=== PATIENT | female | born 1965 | race Caucasian/White ===

== ENCOUNTER 2020-09-18 15:20 | Emergency (ER) | payer MEDICARE, MEDICAID, SELFPAY ==
[2020-09-18 15:49] VITALS: BP 132/72; PULSE 99; RESP 18; TEMP 36.7; O2SAT 98; BMI 33.9
[2020-09-18 16:00] VITALS: RESP 16
--- NOTE | 2020-09-18 16:04 | XR_ITS ---
EXAMINATION: XR FOOT, LEFT CLINICAL INFORMATION: Laceration. Evaluate foreign body. COMPARISON: None. TECHNIQUE: AP, lateral, and oblique views of the left foot. FINDINGS: There is diffuse osteopenia. There is a nondisplaced fracture proximal end proximal phalanx third digit. The soft tissues are normal. There is mild hallux valgus deformity first MTP joint. The ankle mortise and subtalar joints are normal. A small calcaneal spur with mild dorsal foot soft tissue swelling seen. There is an old healed distal tibial fracture. XR/XR foot LT min 3V IMPRESSION: Nondisplaced fracture proximal phalanx proximal and third digit. Diffuse osteopenia. Mild dorsal foot soft tissue swelling.
--- NOTE | 2020-09-18 16:05 | ED.LOWEXIN ---
HPI - Extremity Injury (Lower) General Chief Complaint: Extremity Injury, Lower Stated Complaint: toe lac Time Seen by Provider: 09/18/20 16:04 Source: patient and EMS Mode of arrival: EMS Limitations: no limitations History of Present Illness MD complaint: foot injury and fall Onset (ago): minute(s) (just [employer]) Injury: Left: foot and toes Type of Injury: blunt and laceration Place: home Severity: moderate Relieving factors: nothing Exacerbating factors: nothing Context: fall Associated symptoms: other (T10 paraplegic caught food on WC and then sliced her toe on a tile) Other symptoms: none Treatments prior to arrival: bandage Related Data Previous Rx's Medication Instructions Recorded cefuroxime axetil 250 mg PO BID 7 Days #14 tab 09/18/20 Allergies Allergy/AdvReac Type Severity Reaction Status Date / Time naproxen [NAPROXEN] Allergy Intermediate UNKNOWN Unverified 06/04/20 19:45 Penicillins [PENICILLINS] Allergy Intermediate HIVES Unverified 06/04/20 19:45 Review of Systems Review of Systems: Constitutional : No Fever, No Chills ENT/Mouth : No Ear Pain, No Hoarseness, No sore throat Eyes: No Eye Pain, No Swelling, No Redness, No Foreign Body Cardiovascular : No Chest Pain, No SOB Respiratory : No Cough, No Dyspnea Gastrointestinal : No Nausea, No Vomiting, No Diarrhea, No abdominal Pain Genitourinary : No Dysuria, No Hematuria Musculoskeletal : positive joint pain, No Myalgias, No Joint Swelling Skin : pos Skin lacerations, No rash Neuro : No Weakness, No Numbness, No Loss of Consciousness, No Dizziness, No Headache Psych : No Anxiety/Panic, No Depression PMFSH Past Medical History Attestation statement: The following information was validated with the patient. Medical History Anemia Bipolar 1 disorder Paraplegia Prolonged QT interval Social History Social History (Updated 09/18/20 @ 16:22 by Nanette Lofton DO) Alcohol intake: never Smoking Status: Never smoker Use of substances other than those prescribed or required for medical reasons: No Advance Directives: No Advance Directives Information Provided: No Physical Exam Vital Signs: Vital Signs: Last Vital Signs Temp 98.1 F 09/18/20 15:49 Pulse 99 09/18/20 15:49 Resp 16 09/18/20 16:00 BP 132/72 09/18/20 15:49 Pulse Ox 98 09/18/20 15:49 Body Mass Index 33.9 Appearance: Alert. Oriented X3. No acute distress. Eyes: Pupils equal, round and reactive to light. ENT: Pharynx normal. Neck: Normal inspection. Neck supple. CVS: Normal heart rate and rhythm. Pulses normal. Respiratory: No respiratory distress. Breath sounds normal. Abdomen: Soft and nontender. Skin: Skin warm and dry. pale skin color. Normal skin turgor. Extremities: No lower extremity edema. No calf ttp L foot avulsion and deep abrasion covering entire heal, bleeding controlled, L foot 3rd toe laceration at base from underside onto medial aspect, superficial bleeding controlled Neuro: Oriented X 3. t10 paraplegic spastic movements of LE cannot feel LE - baseline Course Course Course Narrative: H/H stable given fracture will need tape avoid splint due to possible infection, oral antibiotics and wound care Procedures Laceration Laceration 1: Site: other (left 3rd toe) Side (If applicable): left Size (cm): 4 Description: linear and flap Depth: simple, single layer Pre-repair: wound explored and irrigated extensively Skin layer closed with: nylon Size (cm): 5-0 Number of sutures: 5 Technique: simple, interrupted MDM - Extremity Injury (Lower) MDM Narrative Medical decision making narrative: 55yo female mechanical fall with L foot avulsion and abrasion that will need delayed closure and wound management also with L 3rd toe laceration - xray for FB ordered, sutures needed for toe, asking her H/H to be checked has frequent transfusions dispo per results and findings. Lab Data Result diagrams: 09/18/20 16:52 09/18/20 16:52 Labs: Lab Results 09/18/20 09/18/20 09/18/20 Range/Units 16:52 16:52 16:56 WBC 9.2 (4.8-10.8) X10*3/uL RBC 3.25 L (4.20-5.50) X10*6/uL Hgb 8.4 L (12.0-16.0) g/dl Hct 27.6 L (37-47) % MCV 84.9 (80-98) fL MCH 25.8 L (27.0-33.0) pg MCHC 30.4 L (31.0-35.0) g/dl RDW 16.1 H (11.0-16.0) % Plt Count 393 (160-400) X10*3/uL MPV 9.1 L (9.4-12.3) fL Immature Gran % (Auto) 0.9 H (0.0-0.4) % Neut % (Auto) 68.9 (45-73) % Lymph % (Auto) 19.1 L (20-40) % [place] % (Auto) 5.3 (2-11) % Eos % (Auto) 4.8 H (0-4) % Baso % (Auto) 1.0 (0-2) % Lymph # (Auto) 1.8 (1.2-4.9) X10*3/uL [place] # (Auto) 0.5 (0.1-1.2) X10*3/uL Eos # (Auto) 0.4 (0.0-0.4) X10*3/uL Baso # (Auto) 0.1 (0.0-0.2) X10*3/uL Abs Immat Gran (auto) 0.08 H (0.00-0.03) X10*3/uL Absolute Neuts (auto) 6.4 (2.0-8.3) X10*3/uL Absolute Nucleated RBC 0.000 (0.0-0.012) X10*3/uL Nucleated RBC % (auto) 0.0 (0.0-0.2) /100WBC Sodium 137 (135-145) mmol/L Potassium 4.0 (3.3-5.1) mmol/l Chloride 105 (96-108) mmol/L Carbon Dioxide 22 (22-29) mmol/L Anion Gap 14 (12-20) BUN 20 H (9-16) mg/dL Creatinine 1.03 (0.5-1.4) mg/dL Estim Creat Clear Calc 71.7 Estimated GFR 56 Random Glucose 116 H (60-115) mg/dL Calcium 8.3 L (8.4-10.2) mg/dL Blood Type O Positive Antibody Screen NEGATIVE Discharge Plan Discharge Clinical Impression: Laceration Avulsion of skin of foot Qualifiers: Encounter type: initial encounter Laterality: left Qualified Code(s): S91.302A - Unspecified open wound, left foot, initial encounter Fracture of phalanx of foot Qualifiers: Encounter type: initial encounter Toe: lesser toe Fracture type: open Phalanx: proximal Fracture alignment: displaced Laterality: left Qualified Code(s): S92.512B - Displaced fracture of proximal phalanx of left lesser toe(s), initial encounter for open fracture Patient Disposition: Home, Self-Care Instructions: Laceration (ED), Toe Fracture (ED), Skin Avulsion (ED) Additional Instructions: return to ED for any worsening symptoms or concerns Hemoglobin 8.4 YOU CAN HAVE RUNNING WATER OVER YOUR WOUND TO CLEAN BUT NO SOAKING YOUR HEEL DRESSING NEEDS TO BE CHANGED DAILY THIS IS GOING TO TAKE WEEKS TO HEAL MONITOR FOR SIGNS OF INFECTION YOUR TOE LACERATION - SUTURES NEED TO COME OUT IN 7 TO 10 DAYS MONITOR FOR REDNESS, SWELLING, FEVERS, YELLOW DRAINAGE. YOUR TOE HAS A SMALL FRACTURE BUT GIVEN YOUR AMBULATORY STATUS WE WILL ALLOW IT TO HEAL ON ITS OWN THE CONCERN WITH A SPLINT IS THAT UNDERLYING INFECTION WILL OCCUR KEEP NON STICK DRY COVERINGS OVER THE WOUND AND BETWEEN THE TOE Prescriptions: New cefuroxime axetil 250 mg tablet 250 mg PO BID 7 Days Qty: 14 RF: 0 Referrals: Saurabh Adrian PA [Physician Auto Mechanic] - 3 days ([facility] [place] wound care center call Monday for appointment)
[2020-09-18 16:57] LABS: MANUAL DIFF FLAG NO
[2020-09-18 16:58] LABS: Basophils Absolute Auto 0.1 X10*3/uL (0.0-0.2); Eosinophils Absolute Auto 0.4 X10*3/uL (0.0-0.4); Eosinophils Percent Auto 4.8 % (0-4); Hematocrit 27.6 % (37-47); Hemoglobin 8.4 g/dl (12.0-16.0); Imm Gran Abs Auto 0.08 X10*3/uL (0.00-0.03); Imm Gran Pct Auto 0.9 % (0.0-0.4); Lymphocytes Absolute Auto 1.8 X10*3/uL (1.2-4.9); Lymphocytes Percent Auto 19.1 % (20-40); Mean Corpuscular HGB Conc 30.4 g/dl (31.0-35.0); Mean Corpuscular Hemoglobin 25.8 pg (27.0-33.0); Mean Corpuscular Volume 84.9 fL (80-98); Mean Platelet Volume 9.1 fL (9.4-12.3); Monocytes Absolute Auto 0.5 X10*3/uL (0.1-1.2); Monocytes Percent Auto 5.3 % (2-11); Neutrophils Absolute Auto 6.4 X10*3/uL (2.0-8.3); Neutrophils Percent Auto 68.9 % (45-73); Platelet Count 393 X10*3/uL (160-400); Red Blood Count 3.25 X10*6/uL (4.20-5.50); Red Cell Distribution Width 16.1 % (11.0-16.0); White Blood Count 9.2 X10*3/uL (4.8-10.8)
[2020-09-18 17:20] LABS: Anion Gap 14 (12-20); Blood Urea Nitrogen 20 mg/dL (9-16); Calcium 8.3 mg/dL (8.4-10.2); Carbon Dioxide 22 mmol/L (22-29); Chloride 105 mmol/L (96-108); Creatinine Clr Calc Pharmacy 71.7; Estimated Glomerular Filt Rate 56; Glucose Random 116 mg/dL (60-115); Sodium 137 mmol/L (135-145)
[2020-09-18 18:00] VITALS: BP 119/71; PULSE 98; RESP 16; TEMP 36.5; O2SAT 99
[2020-09-18] MEDS: Lidocaine HCl 2 % MPF 5 ML VIAL SUBCUT (18:34)
== END 2020-09-18 18:35 | disposition home or self-care (01) ==
PROVIDERS: Emergency Provider Emergency Medicine; PCP Internal Medicine
DX: S91.115A Laceration without foreign body of left lesser toe(s) without damage to nail, initial encounter (principal); S91.302A Unspecified open wound, left foot, initial encounter; S90.812A Abrasion, left foot, initial encounter; S92.512A Displaced fracture of proximal phalanx of left lesser toe(s), initial encounter for closed fracture; W23.0XXA Caught, crushed, jammed, or pinched between moving objects, initial encounter; Y93.89 Activity, other specified; A52.17 General paresis; Y92.9 Unspecified place or not applicable; Y99.9 Unspecified external cause status
CPT/HCPCS: 12002; 36415; 73630; 80048; 85025; 86850; 86900; 86901; 99283; 99284